=== PATIENT | female | born 1985 | race Caucasian/White ===

== ENCOUNTER 2021-12-13 16:45 | Emergency (ER) | payer MEDICAID, SELFPAY ==
[2021-12-13 17:28] VITALS: BP 149/88; PULSE 61; RESP 16; TEMP 36.4; O2SAT 98; BMI 19.7
--- NOTE | 2021-12-13 17:35 | W.ED.NAVMDI ---
HPI - Nausea/Vomiting/Diarrhea General: Chief complaint: Nausea/Vomiting/Diarrhea Stated complaint: n/v Time Seen by Provider: 12/13/21 17:35 History of Present Illness: Ms. Mercado is a 36-year-old lady who presents to the emergency department due to various concerns. She reports symptom onset approximately 1 week ago. She was outside working and got overheated and did not drink all that much water. Since that time she has had nausea, vomiting, diarrhea, myalgias, subjective fevers, headache, and confusion at times. Overall course of symptoms has persisted. Intensity is moderate to severe. No other specific changes in health, exacerbating, or alleviating factors identified. Onset (ago): week(s) Description of vomiting: watery Description of diarrhea: watery Associated nausea: Yes Severity: moderate Exacerbating factors: exertion Context: alcohol abuse and other Associated symtoms: Reports nausea Review of Systems General: Reports: 10 or more systems reviewed and unremarkable except in HPI and below GI: Reports: nausea [facility] PFSH: Medical History (Updated 12/13/21 @ 20:15 by Bruce Sy MD) Depression Surgical History (Updated 12/13/21 @ 17:53 by Bruce Sy MD) History of breast augmentation History of D&C Social History (Updated 12/13/21 @ 17:54 by Bruce Sy MD) Alcohol intake: current Female Reproductive History: Date of last menstrual period: 12/04/21 Physical Exam Const: COMMON NORMALS: patient oriented x3 and alert GENERAL APPEARANCE: cooperative, well developed and ill appearing (Small) HENMT: COMMON NORMALS: normocephalic and atraumatic HEAD & SCALP: normocephalic and atraumatic Eye: COMMON NORMALS: conjunctivae normal CONJUNCTIVA: Yes conjunctivae normal SCLERA: sclerae normal Neck/C-Spine: COMMON NORMALS: supple and no meningeal signs GENERAL: Yes trachea midline Resp: COMMON NORMALS: normal respiratory effort and clear to auscultation bilaterally EFFORT & INSPECTION: Yes able to speak in complete sentences AUSCULTATION: clear to auscultation bilaterally Cardio: COMMON NORMALS: regular rate and regular rhythm RATE: regular rate RHYTHM: regular rhythm GI: COMMON NORMALS: Soft to palpation PALPATION: Yes Soft to palpation, No Tenderness to palpation present (GI), No Guarding due to palpation present (GI) and No Rigid due to palpation Extremity: GENERAL: Yes normal exam except as noted and No edema Neuro: COMMON NORMALS: patient oriented x3, CN's II-XII intact bilaterally, moves all extremities, no focal motor deficits, no sensory deficits noted and gait normal SENSORIUM/ORIENTATION: Yes alert and No Orientation impaired MENINGEAL SIGNS: Yes no meningeal signs Psych: COMMON NORMALS: mental status grossly normal and Normal thought process present THOUGHT PROCESS: Normal thought process present Course ED course: - Patient was seen and evaluated by me at bedside - Patient placed on cardiac monitors, IV access obtained - Initial evaluation notable for exam as above. - Labs personally interpreted by me -Fluids and antiemetic given - Labs notable for no leukocytosis, normal hemoglobin. Metabolic panel notable for mild hypokalemia, oral replenishment ordered. Urinalysis not concerning for urinary tract infection given squamous epithelial contamination. COVID-positive which likely explain symptoms. -Based on exam imaging not felt to be warranted. Abdominal exam is benign despite abdominal symptoms. No focal neurologic deficits. - Upon serial reexamination after treatment the patient was improved - Based on patient history, evaluation, and testing as interpreted the most likely cause of the patient's condition is symptoms associated with COVID-19 - The results of ED evaluation were discussed with the patient including prescriptions and/or symptomatic cares (if applicable) including appropriate and responsible use, followup plan, and return precautions. The patient verbalized understanding and felt safe for discharge. - Patient discharged in satisfactory condition. Note: Click bubbles or prepopulated meeks in note writing are used for assistance with data collection and billing and are inherently more limited than narrative and other text portions of this note. Please use narrative for additional clinical history and defer to narrative/free test for any case of contradictory information. If information appears in only free text or click bubble it should be considered present or absent as reported. Please contact note public relations writer for clarifications of clinical information or contradictory information. MDM is a brief summary, contradictory or erroneous seeming information should be clarified and full note should be reviewed. Vital Signs: Vital signs: Vital Signs Temperature 97.6 F 12/13/21 17:28 Pulse Rate 78 12/13/21 19:55 Respiratory Rate 16 12/13/21 17:28 Blood Pressure 121/64 12/13/21 19:55 Pulse Oximetry 98 12/13/21 19:55 MDM - Nausea/Vomiting/Diarrhea Medical Decision Making 36-year-old lady presenting with generalized illness after concern over environmental exposure. Patient has COVID-19 which likely explain symptoms. Patient not requiring oxygen and is nontoxic in appearance. Satisfactory for outpatient management. Medical Records I reviewed the patient's medical records. Lab Data I reviewed the patient's lab results. : 12/13/21 18:04 12/13/21 18:04 Laboratory Results WBC 7.7 10^3/uL (4.0-10.0) 12/13/21 18:04 RBC 4.29 10^6/uL (4.1-5.3) 12/13/21 18:04 Hgb 13.8 g/dL (11.5-15.3) 12/13/21 18:04 Hct 39.7 % (37.0-47.0) 12/13/21 18:04 MCV 92.5 fl (81-99) 12/13/21 18:04 MCH 32.2 pg (28.0-34.0) 12/13/21 18:04 MCHC 34.8 g/dL (30.0-36.0) 12/13/21 18:04 RDW 15.3 % (12.1-15.1) H 12/13/21 18:04 Plt Count 173 10^3/cmm (130-400) 12/13/21 18:04 MPV 11.4 fL (7.4-10.4) H 12/13/21 18:04 Neut % (Auto) 66.4 % 12/13/21 18:04 Lymph % (Auto) 25.7 % 12/13/21 18:04 Jerome % (Auto) 5.1 % 12/13/21 18:04 Eos % (Auto) 2.1 % 12/13/21 18:04 Baso % (Auto) 0.4 % 12/13/21 18:04 Neut # (Auto) 5.11 10^3/uL (1.8-7.7) 12/13/21 18:04 Lymph # (Auto) 2.0 10^3/uL (0.8-4.8) 12/13/21 18:04 Jerome # (Auto) 0.4 10^3/uL (0.2-0.9) 12/13/21 18:04 Eos # (Auto) 0.2 10^3/uL (0.0-0.8) 12/13/21 18:04 Baso # (Auto) 0.0 10^3/uL (0.0-0.1) 12/13/21 18:04 Nucleated RBC % (auto) 0 % 12/13/21 18:04 Nucleated RBCs # 0.0 /100WBC 12/13/21 18:04 Sodium 140 mmol/L (136-145) 12/13/21 18:04 Potassium 3.4 mmol/L (3.5-5.1) L 12/13/21 18:04 Chloride 101 mmol/L (98-107) 12/13/21 18:04 Carbon Dioxide 27 mmol/L (22-29) 12/13/21 18:04 Anion Gap 15.4 (5-19) 12/13/21 18:04 BUN 6 mg/dL (6-20) 12/13/21 18:04 Creatinine 0.6 mg/dL (0.5-0.9) 12/13/21 18:04 GFR Calculation 114.4 mL/min (90-130) 12/13/21 18:04 Glucose 95 mg/dL (65-115) 12/13/21 18:04 Calculated Osmolality 287 mOsm/kg (285-295) 12/13/21 18:04 Calcium 9.0 mg/dL (8.5-10.5) 12/13/21 18:04 Total Bilirubin 0.2 mg/dL (0.15-1.2) 12/13/21 18:04 AST 27 U/L (0-32) 12/13/21 18:04 ALT 15 U/L (0-33) 12/13/21 18:04 Alkaline Phosphatase 61 IU/L (35-105) 12/13/21 18:04 Creatine Kinase 59 U/L (26-192) 12/13/21 18:04 C-Reactive Protein 3.0 mg/L (0.0-4.9) 12/13/21 18:04 Total Protein 6.8 g/dL (6.6-8.7) 12/13/21 18:04 Albumin 4.4 g/dL (3.5-5.2) 12/13/21 18:04 Globulin 2.4 g/dL (1.3-4.6) 12/13/21 18:04 Lipase 13 U/L (13-60) 12/13/21 18:04 TSH 1.06 uIU/mL (0.27-4.20) 12/13/21 18:04 HCG, Qual Negative (Negative) 12/13/21 18:42 Urine Color Yellow (Yellow) 12/13/21 18:42 Urine Appearance Clear (CLEAR) 12/13/21 18:42 Urine pH 7 (5-7) 12/13/21 18:42 Ur Specific [place] 1.010 (1.005-1.030) 12/13/21 18:42 Urine Protein Neg (Negative) 12/13/21 18:42 Urine Glucose (UA) Norm (Normal) 12/13/21 18:42 Urine Ketones 2+ (Negative) H 12/13/21 18:42 Urine Blood Trace (Negative) H 12/13/21 18:42 Urine Nitrate Negative (Negative) 12/13/21 18:42 Urine Bilirubin Neg (Negative) 12/13/21 18:42 Urine Urobilinogen 8 mg/dL (Negative) H 12/13/21 18:42 Ur Leukocyte Esterase Negative (Negative) 12/13/21 18:42 Urine RBC 5-10 /hpf (0-2) H 12/13/21 18:42 Urine WBC 0-4 /hpf (0-5) H 12/13/21 18:42 Ur Squamous Epith Cells 15-25 /hpf (0-5) H 12/13/21 18:42 Amorphous Sediment 2+ /hpf 12/13/21 18:42 Urine Bacteria Trace /hpf (NONE) 12/13/21 18:42 Urine Mucus 3+ /hpf 12/13/21 18:42 Coronavirus 229E (PCR) Not detected (NOT DETECT) 12/13/21 18:15 SARS-CoV-2 (PCR) Detected (NOT DETECT) A 12/13/21 18:15 Discharge Plan Discharge Patient Disposition: Home Clinical Impression: COVID-19 Condition: Stable Prescriptions: New ondansetron 4 mg tablet,disintegrating 4 mg PO TID PRN (Reason: nausea and vomiting) Qty: 15 0RF Discharge Orders: Discharge ED (Routine); Ordered 12/13/21 Ordered By: Bruce Sy Discharge Diet: Usual diet Discharge Activity: Increase activity as tolerated Patient Instructions: COVID-19 (Coronavirus Disease 2019) (ED), How to Recover from COVID-19 at Home (ED) Activity Restrictions/Additional Instructions: Thank you for visiting the emergency department. You were seen and evaluated for generalized illness. You are found to have COVID-19 which I believe explains your symptoms. I will give you a prescription for anti-nausea medication. Please ensure that you are staying hydrated. I would expect improvement in symptoms in the next few days. Please follow-up with your primary care provider. Please establish with a primary care provider if you do not currently have one. Please return to the emergency department for chest pain, shortness of breath, or anything else that you are concerned about a feel needs emergency department evaluation. Coding Level of Care Code ED Mat Cutter for [facility] Burt Exam Comprehensive
[2021-12-13 18:03] VITALS: BP 112/67; PULSE 58; O2SAT 99
[2021-12-13 18:09] LABS: Basophils % 0.4 %; Eosinophils # 0.2 10^3/uL (0.0-0.8); Eosinophils % 2.1 %; Hematocrit 39.7 % (37.0-47.0); Hemoglobin 13.8 g/dL (11.5-15.3); Lymphocytes % 25.7 %; Mean Corpuscular HGB Conc 34.8 g/dL (30.0-36.0); Mean Corpuscular Hemoglobin 32.2 pg (28.0-34.0); Mean Corpuscular Volume 92.5 fl (81-99); Mean Platelet Volume 11.4 fL (7.4-10.4); Monocytes # 0.4 10^3/uL (0.2-0.9); Monocytes % 5.1 %; Neutrophils # 5.11 10^3/uL (1.8-7.7); Neutrophils % 66.4 %; Nucleated Red Blood Cells % 0 %; Platelet Count 173 10^3/cmm (130-400); Red Blood Count 4.29 10^6/uL (4.1-5.3); Red Cell Distribution Width 15.3 % (12.1-15.1); White Blood Count 7.7 10^3/uL (4.0-10.0)
[2021-12-13] MEDS: sodium chloride 0.9% 1,000 ML 999 ML IV ×2 (18:10→19:20)
[2021-12-13] MEDS: ondansetron 2 mg/ML SDV 2 mL 4 MG IVP (18:12)
[2021-12-13 18:30] VITALS: BP 131/76; PULSE 56; O2SAT 99
[2021-12-13 18:38] LABS: Alanine Aminotransferase 15 U/L (0-33); Albumin Level 4.4 g/dL (3.5-5.2); Alkaline Phosphatase 61 IU/L (35-105); Anion Gap 15.4 (5-19); Aspartate Amino Transferase 27 U/L (0-32); Blood Urea Nitrogen 6 mg/dL (6-20); Carbon Dioxide 27 mmol/L (22-29); Chloride 101 mmol/L (98-107); Creatine Phosphokinase 59 U/L (26-192); Globulin 2.4 g/dL (1.3-4.6); Glomerular Filtration Rate 114.4 mL/min (90-130); Glucose 95 mg/dL (65-115); Lipase 13 U/L (13-60); Osmolality Calculated 287 mOsm/kg (285-295); Potassium 3.4 mmol/L (3.5-5.1); Sodium 140 mmol/L (136-145); Thyroid Stimulating Hormone 1.06 uIU/mL (0.27-4.20); Total Bilirubin 0.2 mg/dL (0.15-1.2); Total Protein 6.8 g/dL (6.6-8.7)
[2021-12-13 19:00] VITALS: BP 101/56; PULSE 59; O2SAT 100
[2021-12-13 19:04] LABS: HCG Qualitative Urine. Negative (Negative)
[2021-12-13 19:10] LABS: Add Urine Microscopic? YES; Bilirubin Urine Neg (Negative); Blood Urine Trace (Negative); Glucose Urine UA Norm (Normal); Ketones Urine 2+ (Negative); Leukocyte Esterase Urine Negative (Negative); Nitrate Urine Negative (Negative); Protein Urine Neg (Negative); Urine Appearance Clear (CLEAR); Urine Color Yellow (Yellow); Urobilinogen Urine 8 mg/dL (Negative); pH Urine 7 (5-7)
[2021-12-13 19:11] LABS: Add Urine Culture? No; Amorphous Sediment Urine 2+ /hpf; Bacteria Urine TRACE /hpf; Mucus Urine 3+ /hpf; Squamous Epithelial Cell Urine 15-25 /hpf (0-5); WBC Urine 0-4 /hpf (0-5)
[2021-12-13] MEDS: potassium chloride ER 20 mEq Tablet 40 MEQ PO (19:20)
[2021-12-13 19:55] VITALS: BP 121/64; PULSE 78; O2SAT 98
[2021-12-13 20:03] LABS: Adenovirus Not Detected (NOT DETECT); Chlamydia Pneumoniae Not Detected (NOT DETECT); Coronavirus 229E,HKU1,NL63,OC4 Not Detected (NOT DETECT); Human Metapneumovirus Not Detected (NOT DETECT); Human Rhinovirus/Enterovirus Not Detected (NOT DETECT); Influenza A Not Detected (NOT DETECT); Influenza A H1 Not Detected (NOT DETECT); Influenza A H1-2009 Not Detected (NOT DETECT); Influenza A H3 Not Detected (NOT DETECT); Influenza B Not Detected (NOT DETECT); Mycoplasma Pneumoniae Not Detected (NOT DETECT); Parainfluenza Virus Type 1 Not Detected (NOT DETECT); Parainfluenza Virus Type 2 Not Detected (NOT DETECT); Parainfluenza Virus Type 3 Not Detected (NOT DETECT); Parainfluenza Virus Type 4 Not Detected (NOT DETECT); Respiratory Syncytial Virus A Not Detected (NOT DETECT); Respiratory Syncytial Virus B Not Detected (NOT DETECT); SARS-COV-2 Detected (NOT DETECT)
== END 2021-12-13 21:01 | disposition home or self-care (01) ==
PROVIDERS: Emergency Provider Emergency Medicine
DX: U07.1 COVID-19 (principal)
CPT/HCPCS: 80053; 81001; 81025; 82550; 83690; 84443; 85025; 86140; 87635; 96374; 99284; J2405; J7030